=== PATIENT | male | born 1975 | race Caucasian/White ===

== ENCOUNTER 2017-12-19 20:11 | Emergency (ER) | payer OTHER ==
[~2017-12-19] VITALS: Ht 182.9 cm; Wt 84.1 kg
[~2017-12-19 20:11] MED LIST: AMBIEN10 MG PO; AMBIEN5 MG PO; DILAUDID8 MG PO; METHADONE10 M1; NAPROSYN500 MG PO; OXYCODONE HCL30 MG PO; PENICILLN VK500 M1 OR; PENICILLN VK500 MG PO; TORADOL OR; XANAX2 MG PO
[2017-12-19] MEDS ORDERED: LEXAPRO10 MG PO (20:32)
[2017-12-19] MEDS ORDERED: TRAZODONE50 MG PO (20:33)
[2017-12-19] MEDS ORDERED: ATIVAN1 MG PO (20:33)
[2017-12-19] MEDS ORDERED: ATIVAN1 M1 PO (20:33)
[2017-12-19] MEDS ORDERED: FLEXERIL5 M1 PO (22:29)
[2017-12-19 22:40] VITALS: BP 122/81
== END 2017-12-19 22:40 | disposition home or self-care (01) | DRG 605 ==
LOC: ED 20:11
DX: S30.0XXA Contusion of lower back and pelvis, initial encounter (principal); S70.02XA Contusion of left hip, initial encounter; F17.210 Nicotine dependence, cigarettes, uncomplicated; W18.39XA Other fall on same level, initial encounter

== ENCOUNTER 2018-05-22 08:15 | Emergency (ER) | payer SELFPAY ==
[~2018-05-22] VITALS: Ht 182.9 cm; Wt 80.0 kg
[~2018-05-22 08:15] MED LIST changes: +ATIVAN1 M1 PO; +ATIVAN1 MG PO; +FLEXERIL5 M1 PO; +LEXAPRO10 MG PO; +TRAZODONE50 MG PO
[2018-05-22] MEDS ORDERED: MOTRIN400 MG PO ×2 (08:36→08:56)
[2018-05-22] MEDS ORDERED: PENICILLN VK500 M1 PO ×2 (08:36→08:56)
[2018-05-22 09:04] VITALS: BP 138/97
== END 2018-05-22 09:02 | disposition home or self-care (01) | DRG 159 ==
LOC: ED 08:15
DX: K08.89 Other specified disorders of teeth and supporting structures (principal); M79.605 Pain in left leg; F17.210 Nicotine dependence, cigarettes, uncomplicated